=== PATIENT | male | born 1960 | race Caucasian/White ===

== ENCOUNTER → 2016-04-22 | Outpatient (CLI) | payer BC ==
[2016-04-22 07:55] LABS: BASOPHILS % (AUTO) 0 % (0-2); EOSINOPHILS # (AUTO) 0.2 10^3uL; EOSINOPHILS % (AUTO) 4 % (0-4); LYMPHOCYTES # (AUTO) 1.7 X10^3; MEAN CORPUSCULAR HEMOGLOBIN 31.2 PG (26.0-34.0); MEAN CORPUSCULAR VOLUME 86 FL (80-100); MONOCYTES # (AUTO) 0.5 X10^3; MONOCYTES % (AUTO) 9 % (3-11); NEUTROPHILS # (AUTO) 3.3 X10^3; NEUTROPHILS % (AUTO) 58 % (51-67); PLATELET COUNT 250 10^3uL (150-450); WHITE BLOOD COUNT 5.68 10^3uL (4.0-11.0)
[2016-04-22 08:06] LABS: MEAN CORPUSCULAR HGB CONC 36.4 g/dL (31.0-37.0)
[2016-04-22 08:17] LABS: ALBUMIN 4.5 g/dL (3.4-5.0); ANION GAP 14.3 MEQ/L (3-15); TOTAL PROTEIN 7.4 g/dL (6.4-8.5)
== END ==
LOC: LAB 06:40
PROVIDERS: ATTEND Internal Medicine
DX: Z00.00 Encounter for general adult medical examination without abnormal findings (principal); E78.4 Other hyperlipidemia; Z12.5 Encounter for screening for malignant neoplasm of prostate
CPT/HCPCS: 36415; 80053; 80061; 84153; 84443; 85025

== ENCOUNTER → 2016-06-03 | Outpatient (CLI) | payer BC ==
[~2016-06-03] MED LIST: CETI10TA20 PO; CICL12.5 NS; DESL5TAB PO; DOXY100T41 PO; HYDR473S17 PO; MELO-249 PO; ROSU5TAB PO; UBID100C8 PO
== END ==
LOC: LAB 07:09
PROVIDERS: ATTEND Internal Medicine
DX: R73.03 Prediabetes (principal); M15.0 Primary generalized (osteo)arthritis; E78.2 Mixed hyperlipidemia
CPT/HCPCS: 36415; 80061; 82947; 85652

== ENCOUNTER → 2016-06-18 | Outpatient (CLI) | payer BC ==
[~2016-06-18] MED LIST changes: +BENZ-13 PO; +IPR14UD INH
[2016-06-19 12:21] VITALS: BP 133/87
--- NOTE | 2016-06-19 12:21 | Urgent Care T Sheet Gen (E) ---
Intake General Temperature (Fahrenheit): 97.7 Pulse: 67 Blood Pressure Systolic: 133 Blood Pressure Diastolic: 87 Respirations: 16 SPO2: 94 Chief Complaint: cough Source: Patient Exam Limitations: No limitations History of Present Illness Initial Comments 55 year old male presents with cough x 2 weeks. States he has resolving URI sx and has been treated by PCP. He is finishing his second round of Minocycline and Prednisone. Onset & Duration: Weeks (2) Timing: Still present Severity: Moderate Recent Trauma: No Similar Sympotms Previously: Yes Prior Treatment: Treated by doctor Allergies: Coded Allergies: No Known Allergies (Verified Allergy, 12/21/11) Home Meds Active Scripts Benzonatate (Tessalon Perle)100 Mg [id number] Mg PO TID #9 CAP Prov:JAIMIE SON GRADUATE RECRUITER 06/18/16 Ipratropium [place] (Atrovent HFA)17 Mcg/Puff Inha17 Mcg INH QID #1 INHALER 2 inhalations 4 times a day x 7 days Prov:JAIMIE SON GRADUATE RECRUITER 06/18/16 Reported Medications Cetirizine HCl (Zyrtec)10 Mg [id number] Mg PO HS 05/20/15 Meloxicam 15 Mg [id number] Mg PO DAILY 05/20/15 Rosuvastatin Calcium (Crestor)5 Mg Tablet5 Mg PO mon12/21/11 Respiratory Constitutional Symptoms: No Chills, No Diaphoresis, No Fever, No Malaise, No Weakness, No Other EENTM: No Eye pain, No Blurred vision, No Eye tearing, No Double Vision, No Ear pain, No Ear discharge, No Nose Pain, No Nose Congestion, No Throat pain, No Throat swelling, No Mouth Pain, No Mouth Swelling, No Other (URI sx are resolving) Respiratory: CoughNo Orthopnea, No Short of breath, No Stridor, No Wheezing Cardiovascular: No Chest pain, No Edema, No Palpitations, No Syncope, No Other Gastrointestinal/Abdominal: No symptoms reported Genitourinary: No symptoms reported Musculoskeletal: No symptoms reported Skin: No Change in color, No Change in hair/nails, No Dryness, No Lesions, No Lumps, No Rash, No Other Neurological: No Anxiety, No Depressed, No Emotional problems, No Headache, No Numbness, No Paresthesia, No Pre-existing deficit, No Seizure, No Tingling, No Tremors, No Weakness, No Other All Other Systems Reviewed Remaining Systems: All other systems reviewed with negative findings Past [id number]-[id number]-[id number] Hx Surgeries/Hospitalizations Hospitalization/Surgery Hx: carpal tunnel bilateral 2006 about, right eye surgery, Respiratory Respiratory History: None Comment: allergies takes Clarinex Cardiovascular Cardiovascular History: None Neuro/Muscular Neuro/Muscular History: Back Problems Reproductive System Sexually Transmitted Diseases: No Genitouinary Genitourinary History: None Gastrointestinal GI/Endocrine History: None Diabetes Diabetes: No HEENT Impaired Vision: Glasses Hearing Impaired: None Integumentary Integumentary History: None Cancer History of Cancer?: No Psychosocial Behavior Disorders: None Physical Exam Physical Exam General Appearance: WD/WN No apparent distress Eyes, Ears, Nose, Throat Ex: PERRL/EOMI Normal ENT inspection TMs normal Pharynx normal Neck Exam: Non tender Full range of motion Supple Normal inspection Normal thyroid Respiratory Exam: Chest non-tender Lungs clear Normal breath sounds No respiratory distress No accessory muscles used Cardiovascular Exam: Regular rate, rhythm No edema No gallop No JVD No murmur GI/ Exam: Non tender No organomegaly Normal bowel sounds No distention Back Exam: Normal Inspection No CVA tenderness Skin Exam: Normal color Warm/dry/intact No rashes Extremity Exam: Non-tender Full range of motion Normal capillary refill Neurologic/Psychiatric Exam: Oriented times 4 CN's II-X nml No motor deficits No sensory deficits Mood/affect nml Lymphatic Exam: No adenopathy Departure Urgent Care Impression Chief Complaint: cough Impression: Primary Impression: Cough Departure Disposition: 01 HOME OR SELF-CARE Condition: Stable Referrals: CHRIS TIERNEY MD (PCP) Additional Instructions: Discussed with pt the importance of finishing antibiotics. Advised that cough can last 3-4 weeks. Acknowledged discomfort and offered symptom relief. Atrovent inhaler 2 inhalations 4 times a day to help with cough. Tessalon Pearles 100 mg TID for cough, prn. Increase fluids and humidify air. Follow up with PCP for cough. Return to care if sx worsen, fail to improve, or new sx. Scripts Benzonatate (Tessalon Perle)100 Mg [id number] Mg PO TID #9 CAP Prov:JAIMIE SON GRADUATE RECRUITER 06/18/16 Ipratropium [place] (Atrovent HFA)17 Mcg/Puff Inha17 Mcg INH QID #1 INHALER 2 inhalations 4 times a day x 7 days Prov:JAIMIE SON APRN 06/18/16 End of report . JAIMIE SON APRN Jun 18, 2016 10:19
== END ==
LOC: MHUC 09:26
PROVIDERS: ATTEND Nurse Practitioner Family
DX: R05 Cough (principal)
CPT/HCPCS: 99213